=== PATIENT | female | born 1950 | race Caucasian/White ===

== ENCOUNTER 2020-01-08 12:21 | Inpatient (IN) ==
[2020-01-08] MEDS ORDERED: CeFAZolin Syr 2,000MG/20 ML 2,000 MG/20 ML SYRINGE IVPB ONE (13:52)
[2020-01-08] MEDS ORDERED: Ringers Solution, Lactated 1,000 ML IVC SCH ×2 (14:00→17:12)
[2020-01-08] MEDS ORDERED: *HR* Promethazine 25 MG/ML VIAL IVP PRN (14:06)
[2020-01-08] MEDS ORDERED: Ondansetron 4 MG/2 ML VIAL IVP ONE (14:06)
[2020-01-08] MEDS ORDERED: Vancomycin 1,000 MG VIAL ONE ×2 (14:06→14:32)
[2020-01-08] MEDS ORDERED: *HR* HYDROmorphone PF 0.5 MG/0.5 ML SYRINGE IVP PRN (14:06)
[2020-01-08] MEDS ORDERED: Ethanol\\Acetic Acid\\Na Ace\\Ben 1,000 ML IRRIG.SOLN IR ONE (14:06)
[2020-01-08] MEDS ORDERED: *HR* OxyCODONE Immed Rel 5 MG TABLET PO PRN ×2 (14:06→17:12)
[2020-01-08] MEDS ORDERED: Acetaminophen IV 1,000 MG/100 ML INFUS..BTL IVPB ONE (14:07)
[2020-01-08] MEDS ORDERED: *HR* Midazolam HCl 2 MG/2 ML VIAL ONE (14:27)
[2020-01-08] MEDS ORDERED: *HR* FentaNYL (PF) 100 MCG/2 ML VIAL ONE (14:27)
[2020-01-08] MEDS ORDERED: Lidocaine -MPF 2% 2 ML VIAL ONE (14:28)
[2020-01-08] MEDS ORDERED: *HR* Propofol 200 MG/20 ML VIAL IVP ONE ×2 (14:28→14:52)
[2020-01-08] MEDS ORDERED: ROPIVACAINE/PF/NS 0.25% 1 EACH SYRINGE INTRAART ONE (14:29)
[2020-01-08] MEDS ORDERED: Ropivacaine/PF 0.5% 30 ML VIAL ONE (14:29)
[2020-01-08] MEDS ORDERED: Ondansetron 4 MG/2 ML VIAL ONE (14:55)
[2020-01-08] MEDS ORDERED: Dexamethasone 4 MG/ML VIAL ONE (15:02)
[2020-01-08] MEDS ORDERED: Naloxone 0.4 MG/ML INJ IVP PRN (17:12)
[2020-01-08] MEDS ORDERED: Dextrose Gel 15 GM/37.5 ML TUBE PO PRN ×2 (17:12)
[2020-01-08] MEDS ORDERED: MOM Conc 10 ML UD.LIQ PO PRN (17:12)
[2020-01-08] MEDS ORDERED: Sennosides 8.6 MG TABLET PO PRN (17:12)
[2020-01-08] MEDS ORDERED: *HR* Dextrose 50 % in Water (Vial) 50 ML VIAL IVP PRN (17:12)
[2020-01-08] MEDS ORDERED: Ondansetron 4 MG/2 ML VIAL IVP PRN (17:12)
[2020-01-08] MEDS ORDERED: D5% in Water 1,000 ML IVC PRN (17:12)
[2020-01-08] MEDS: Insulin LISPRO 300 UNITS/3 ML VIAL SQ SCH (17:45)
[2020-01-08 18:00] LABS: Hematocrit 35.3 % (35.3-44.9); Hemoglobin 12.1 g/dL (11.5-15.4)
[2020-01-08] MEDS ORDERED: *HR* Enoxaparin 30 MG/0.3 ML SYRINGE SQ SCH (18:00)
[2020-01-08] MEDS: *HR* Enoxaparin 30 MG/0.3 ML SYRINGE SQ SCH (18:05)
[2020-01-08] MEDS ORDERED: Insulin LISPRO 300 UNITS/3 ML VIAL SQ SCH (21:00)
[2020-01-08] MEDS: CeFAZolin 2 GM/120 ML BAG IVPB SCH (22:58)
[2020-01-09 03:07] LABS: Hematocrit 33.1 % (35.3-44.9); Hemoglobin 11.3 g/dL (11.5-15.4)
[2020-01-09 03:23] LABS: BUN/Creatinine Ratio 19 (6-26); Blood Urea Nitrogen 15 mg/dL (8-23); Calcium 8.7 mg/dL (8.6-10.3); Carbon Dioxide 19 mEq/L (23-29); Chloride 109 mEq/L (98-107); Glucose 206 mg/dL (70-105); Osmolality,Calculated 289 (280-300); Potassium 4.1 mEq/L (3.5-5.1); Sodium 136 mEq/L (136-145); eGFR For African Americans > 60 (> 60); eGFR For Non-African Americans > 60 (> 60)
[2020-01-09] MEDS: *HR* Enoxaparin 30 MG/0.3 ML SYRINGE SQ SCH ×2 (06:06→17:41)
[2020-01-09] MEDS: CeFAZolin 2 GM/120 ML BAG IVPB SCH (06:06)
[2020-01-09] MEDS: Insulin LISPRO 300 UNITS/3 ML VIAL SQ SCH ×3 (07:43→16:56)
[2020-01-09] MEDS: HYDROcodone BIT/Homatropine 5 MG TABLET PO PRN ×2 (08:59→17:49)
[2020-01-09 15:53] VITALS: BP 121/81
== END 2020-01-09 19:54 | disposition home health service (06) | DRG 483 ==
LOC: SAMDAY 12:21 → 3NENU 17:09
PROVIDERS: ADMIT Orthopaedic Surgery; ATTEND Orthopaedic Surgery